=== PATIENT | male | born 1930 | race Caucasian/White ===

== ENCOUNTER → 2016-04-18 | Outpatient (CLI) | payer MEDICARE, OTHER ==
[~2016-04-18] MED LIST: ACETIC ACID 0.25% 1000 ML IRRIGATION SOLUTION IRRIG ONE; CIPR-278 PO; LEVE500T53 PO; MEMA10TA11 PO; QUET25TA PO; SERT50TA12 PO
[2016-04-18 14:54] VITALS: BP 106/59
== END | disposition home or self-care (01) ==
LOC: HBOWC 13:56
PROVIDERS: ATTEND Emergency Medicine
DX: L89.623 Pressure ulcer of left heel, stage 3 (principal); I87.2 Venous insufficiency (chronic) (peripheral); F03.90 Unspecified dementia, unspecified severity, without behavioral disturbance, psychotic disturbance, mood disturbance, and anxiety
CPT/HCPCS: 87070; 87205; 97597

== ENCOUNTER → 2016-05-04 | Outpatient (CLI) | payer MEDICARE, OTHER ==
[~2016-05-04] MED LIST changes: -ACETIC ACID 0.25% 1000 ML IRRIGATION SOLUTION IRRIG ONE
[2016-05-04 12:12] VITALS: BP 102/55
== END | disposition home or self-care (01) ==
LOC: HBOWC 09:50
PROVIDERS: ATTEND Emergency Medicine
DX: L89.623 Pressure ulcer of left heel, stage 3 (principal); F03.90 Unspecified dementia, unspecified severity, without behavioral disturbance, psychotic disturbance, mood disturbance, and anxiety; I87.2 Venous insufficiency (chronic) (peripheral)
CPT/HCPCS: 97597

== ENCOUNTER → 2016-06-08 | Outpatient (CLI) | payer MEDICARE, OTHER ==
[2016-06-08 11:21] VITALS: BP 107/82
== END | disposition home or self-care (01) ==
LOC: HBOWC 10:41
PROVIDERS: ATTEND Emergency Medicine
DX: L89.624 Pressure ulcer of left heel, stage 4 (principal); F03.90 Unspecified dementia, unspecified severity, without behavioral disturbance, psychotic disturbance, mood disturbance, and anxiety; I87.2 Venous insufficiency (chronic) (peripheral)
CPT/HCPCS: 87070; 87205; 97597

== ENCOUNTER → 2016-06-15 | Outpatient (CLI) | payer MEDICARE, OTHER ==
[2016-06-15 14:42] VITALS: BP 97/61
[2016-06-15 16:06] VITALS: BP 117/64
== END | disposition home or self-care (01) ==
LOC: HBOWC 14:31
PROVIDERS: ATTEND Emergency Medicine
DX: L89.624 Pressure ulcer of left heel, stage 4 (principal); F03.90 Unspecified dementia, unspecified severity, without behavioral disturbance, psychotic disturbance, mood disturbance, and anxiety
CPT/HCPCS: 97597

== ENCOUNTER → 2016-07-06 | Outpatient (CLI) | payer MEDICARE, OTHER ==
[2016-07-06 10:37] VITALS: BP 118/56
== END | disposition home or self-care (01) ==
LOC: HBOWC 10:09
PROVIDERS: ATTEND Emergency Medicine
DX: L89.624 Pressure ulcer of left heel, stage 4 (principal); I87.2 Venous insufficiency (chronic) (peripheral); F03.90 Unspecified dementia, unspecified severity, without behavioral disturbance, psychotic disturbance, mood disturbance, and anxiety